=== PATIENT | female | born 2000 ===

== ENCOUNTER 2023-11-02 06:20 | Day surgery (SDC) | payer OTHER ==
[2023-11-02] MEDS ORDERED: CEFAZOLIN SODIUM 1,000 MG VIAL ONE (13:48)
[2023-11-02] MEDS ORDERED: BUPIVACAINE HCL 30 ML VIAL IJ SCH (15:00)
[2023-11-02] MEDS ORDERED: CEFAZOLIN SODIUM 1,000 MG VIAL IV SCH (15:00)
== END 2023-11-02 18:20 | disposition home or self-care (01) ==
LOC: CIR.AMB 06:20
PROVIDERS: ATTEND Orthopaedic Surgery Hand Surgery
DX: S62.014A Nondisplaced fracture of distal pole of navicular [scaphoid] bone of right wrist, initial encounter for closed fracture (principal)

== ENCOUNTER 2024-10-24 06:20 | Day surgery (SDC) | payer OTHER ==
[2024-10-24] MEDS ORDERED: BUPIVACAINE HCL 30 ML VIAL IJ ONE (14:00)
[2024-10-24] MEDS ORDERED: CEFAZOLIN SODIUM 1,000 MG VIAL IV ONE (14:00)
== END 2024-10-24 16:55 | disposition home or self-care (01) ==
LOC: CIR.AMB 06:20
PROVIDERS: ATTEND Orthopaedic Surgery Hand Surgery
DX: T84.84XA Pain due to internal orthopedic prosthetic devices, implants and grafts, initial encounter (principal); S62.0 Fracture of navicular [scaphoid] bone of wrist; M67.833 Other specified disorders of tendon, right wrist